=== PATIENT | male | born 1985 | race Caucasian/White ===

== ENCOUNTER 2017-06-23 03:11 | Emergency (ER) | END 2017-06-23 05:45 | disposition home or self-care (01) ==

== ENCOUNTER 2017-06-27 23:47 | Emergency (ER) | END 2017-06-28 03:17 | disposition home or self-care (01) ==

== ENCOUNTER 2018-12-22 16:47 | Emergency (ER) | payer MEDICAID, OTHER ==
[~2018-12-22] VITALS: Ht 185.4 cm; Wt 114.0 kg
[~2018-12-22 16:47] MED LIST: ALPR0.5T PO; IBUP-1542 PO; MAG-19 PO; OMEP20CA16 PO; TRAM50TA2 PO
[2018-12-22 17:11] VITALS: Ht 185.4 cm; Wt 114.0 kg
[2018-12-22] MEDS ORDERED: ASPIRIN 325 MG TAB PO STA (18:29)
[2018-12-22] MEDS ORDERED: FAMOTIDINE 20 MG INJ IV ONE (19:00)
[2018-12-22] MEDS ORDERED: SOD CHLORIDE 0.9% 1,000 ML IV ONE (19:00)
[2018-12-22 22:21] VITALS: BP 120/80; PULSE 73; RESP 17
== END 2018-12-22 20:21 | disposition home or self-care (01) ==
LOC: FTE 16:47
DX: R07.9 Chest pain, unspecified (principal)
CPT/HCPCS: 36415; 71045; 80048; 84484; 85025; 93005; 96374; J7030; Z7502; Z7610